=== PATIENT | male | born 1950 | race Caucasian/White ===

== ENCOUNTER 2018-09-21 18:45 | Observation (INO) ==
[2018-09-21] MEDS ORDERED: Temazepam 15 MG Capsule PO PRN (20:23)
[2018-09-21] MEDS ORDERED: Morphine Inj 4 MG/ML Vial IV.PUSH PRN (20:23)
[2018-09-21] MEDS ORDERED: Famotidine 20 MG Tablet PO SCH (21:00)
[2018-09-22] MEDS ORDERED: Heparin Drip 25,000 UNIT/250 ML BAG IV.CONT PRN (03:27)
[2018-09-22] MEDS ORDERED: oxyCODONE HCL 40 MG Controlled Release Tablet PO SCH ×2 (04:15→09:00)
[2018-09-22 04:26] LABS: Baso # (Auto) 0.1 th/mm3 (0.0-0.2); Baso % (Auto) 0.8 % (0.0-2.0); Eos # (Auto) 0.3 th/mm3 (0.0-0.4); Eos % (Auto) 3.3 % (0.0-4.0); Hematocrit 44.4 % (39.0-51.0); Hemoglobin 14.7 gm/dL (13.0-17.0); Lymph # (Auto) 5.8 th/mm3 (1.0-4.8); Mean Corpuscular HGB Conc 33.1 % (32.0-36.0); Mean Corpuscular Hemoglobin 30.4 pg (27.0-34.0); Mean Corpuscular Volume 91.9 fL (80.0-100.0); Mean Platelet Volume 9.4 fL (7.0-11.0); Mono # (Auto) 0.5 th/mm3 (0.0-0.9); Mono % (Auto) 5.4 % (0.0-8.0); Neut # (Auto) 3.1 th/mm3 (1.8-7.7); Neut % (Auto) 31.5 % (16.0-70.0); Platelet Count 172 th/mm3 (150-450); Red Blood Count 4.83 mil/mm3 (4.50-5.90); Red Cell Distribution Width 14.4 % (11.6-17.2); White Blood Count 9.8 th/mm3 (4.0-11.0)
[2018-09-22] MEDS ORDERED: hydrALAZINE HCl Inj 20 MG/ML Vial IV.PUSH PRN (04:36)
[2018-09-22 04:40] LABS: Activated Partial Thrombo Time 64.7 sec (23.4-31.7); INR 1.2 Ratio; Prothrombin Time 11.8 sec (9.8-11.6)
--- NOTE | 2018-09-22 04:57 | P.HPIM ---
History of Present Illness Service: [facility] Hospitalists . Primary Care Physician: Dr. Haile (sp?) Chief Complaint: Chest pain History of Present Illness: Mr. Valencia is a 67 y/o male with a history of AAA s/p AAA repair, hypertension, chronic pain syndrome/RSD, and anxiety who presented to the ER in [place] complaining of chest pain. His second troponin I elio to 1.36 and he was transferred to the [facility] hospital for evaluation of NSTEMI under the hospitalist service. The patient is seen on the [facility]. He reports that he had an episode of nonexertional chest discomfort that felt like a "pulled muscle" in the center of his chest that resolved after about 5 minutes this afternoon. A little while later, he had an episode of severe chest pressure accompanied by diaphoresis, shortness of breath, and radiating to his bilateral mandible area that didn't resolve until after he had received nitroglycerin in the ER in [place]. His BP was also severely elevated in [place] at 212/102 and improved with Clonidine administered there but he experienced bradycardia following dose. . Inpatient Certification: I certify that the inpatient services were ordered in accordance with Medicare regulations governing the order. This includes certification that hospital inpatient services are reasonable and necessary and in the case of services not specified as inpatient-only under 42 CFR 419.22(n), that they are appropriately provided as inpatient services in accordance to with the 2-midnight benchmark under 43 CFR 412.3(e) Estimated Total Length of Stay (Days): 3 Plans for Post Hospital Care: Home Review of Systems All other systems reviewed negative except as stated in HPI [facility] - History History Provided By: Patient - Medical History Medical History: Medical History (Last Updated 09/22/18 @ 05:00 by SUNNY Ford) Abdominal aortic aneurysm Degenerative disc disease Hypertension RSD (reflex sympathetic dystrophy) Spinal stenosis - Surgical History Surgical History: Surgical History (Last Updated 09/22/18 @ 05:00 by SUNNY Ford) H/O knee surgery H/O removal of cyst History of tonsillectomy S/P AAA repair - Family History Family History: Family History (Last Updated 09/22/18 @ 04:59 by SUNNY Ford) Father CAD (coronary artery disease) Mother CAD (coronary artery disease) - Social History I have reviewed the patient's Social History: Yes - Tobacco History Second Hand Smoke Exposure: Yes Tobacco Use In Past 30 Days: Yes Smoking Status: Current every day smoker Tobacco Type: Cigarettes Packs Per Day: 6 Years Smoked: 15 - Alcohol History How Often Do You Have a Drink Containing Alcohol: Never - Substance Use History Substance History: No History of Abuse - Immunization History Tetanus Immunization: <5 Years Hx Influenza Vaccine This Season: No Medications and Allergies Active Medications: Active Medications Acetaminophen (Tylenol) 500 mg PO Q4H PRN PRN Reason: HEADACHE Aspirin (Aspirin Chew) 81 mg PO DAILY GRISELDA Enalaprilat (Vasotec Inj) 2.5 mg IV.PUSH Q6H PRN PRN Reason: SBP>160 or DBP>100 Last Admin: 09/22/18 03:48 Dose: 2.5 mg Famotidine (Pepcid) 20 mg PO BID GRISELDA Gabapentin (Neurontin) 800 mg PO BID GRISELDA Hydralazine HCl (Apresoline Inj) 10 mg IV.PUSH Q4H PRN PRN Reason: SBP>160 or DBP>100 Heparin Sodium/Dextrose (Heparin/D5w 25,000 U/250 Ml) 25,000 unit in 250 mls @ 8 mls/hr IV.CONT TITRATE PRN; Protocol PRN Reason: Per Protocol Metoprolol Tartrate (Lopressor) 50 mg PO BID@0600,1800 GRISELDA Morphine Sulfate (Morphine Inj) 2 mg IV.PUSH Q4H PRN PRN Reason: BREAKTHROUGH PAIN Last Admin: 09/22/18 03:48 Dose: 2 mg Nitroglycerin (Nitrostat Sl) 0.4 mg SL Q5M PRN PRN Reason: ANGINA Oxycodone HCl (Roxicodone) 30 mg PO Q4HR GRISELDA Oxycodone HCl (Oxycontin Cr) 40 mg PO Q12H GRISELDA Sodium Chloride (Ns Flush) 2 ml IV.FLUSH BID GRISELDA Sodium Chloride (Ns Flush) 2 ml IV.FLUSH PRN PRN PRN Reason: FLUSH AFTER USING IV ACCESS Temazepam (Restoril) 15 mg PO HS PRN PRN Reason: INSOMNIA Allergies Allergy/AdvReac Type Severity Reaction Status Date / Time No Known Allergies Allergy Verified 09/21/18 19:07 Home Medications Medication Instructions Recorded Confirmed Type aspirin 81 mg PO DAILY 09/21/18 09/22/18 History metoprolol tartrate 50 mg PO BID 09/21/18 09/22/18 History alprazolam [Xanax] 1 mg PO BID PRN 09/22/18 09/22/18 History gabapentin 800 mg PO BID 09/22/18 09/22/18 History oxycodone 30 mg PO Q4-6H PRN 09/22/18 09/22/18 History oxycodone [OxyContin] 40 mg PO Q12H 09/22/18 09/22/18 History Exam Vital signs: Vital Signs 09/22/18 03:50 09/22/18 04:00 Temperature 97.4 F L Pulse Rate 48 L Respiratory Rate 18 18 Blood Pressure 179/106 H Pulse Oximetry 97 Intake & Output 09/21/18 09/21/18 09/22/18 06:59 18:59 06:59 Weight 67.5 kg Other: Date of Last Bowel Movement 09/21/18 Weight On Admission 67.5 kg Narrative: GENERAL: This is a well-nourished, well-developed patient, in no apparent distress. SKIN: No rashes, ecchymoses or lesions. Cool and dry. HEAD: Atraumatic. Normocephalic. EYES: No scleral icterus. No injection or drainage. ENT: Nose without bleeding, purulent drainage. NECK: Trachea midline. No JVD. CARDIOVASCULAR: Regular rate and rhythm without murmurs, gallops, or rubs. RESPIRATORY: Breath sounds diminished air exchange throughout but equal bilaterally. No wheezes, rales, or rhonchi. GASTROINTESTINAL: Abdomen soft, non-tender, nondistended. No guarding. MUSCULOSKELETAL: Extremities without clubbing, cyanosis, or edema. No calf tenderness. NEUROLOGICAL: Awake and alert. Motor and sensory grossly within normal limits. Normal speech. . Results - Labs CBC & Chem 7: 09/22/18 04:13 09/22/18 04:13 Labs: Short CBC 09/22/18 Range/Units 04:13 WBC 9.8 (4.0-11.0) th/mm3 Hgb 14.7 (13.0-17.0) gm/dL Hct 44.4 (39.0-51.0) % Plt Count 172 (150-450) th/mm3 Caprini VTE Risk Assessment Caprini VTE Risk Assessment: Moderate/High Risk (score >= 2) Caprini Risk Assessment Model: Point Value = 1 Point Value = 2 Point Value = 3 Point Value = 5 Age 41-60 Minor surgery BMI > 25 kg/m2 Swollen legs Varicose veins or History of unexplained or recurrent spontaneous Oral contraceptives or hormone replacement Sepsis (< 1 month) Serious lung disease, including pneumonia (< 1 month) Abnormal pulmonary function Acute myocardial infarction Congestive heart failure (< 1 month) History of inflammatory bowel disease Medical patient at bed rest Age 61-74 Arthroscopic surgery Major open surgery (> 45 min) Laparoscopic surgery (> 45 min) Malignancy Confined to bed (> 72 hours) Immobilizing plaster cast Central venous access Age >= 75 History of VTE Family history of VTE Factor V Leiden Prothrombin [id number] Lupus anticoagulant Anticardiolipin antibodies Elevated serum homocysteine Heparin-induced thrombocytopenia Other congenital or acquired thrombophilia Stroke (< 1 month) Elective arthroplasty Hip, pelvis, or leg fracture Acute spinal cord injury (< 1 month) Prophylaxis Regimen: Total Risk Factor Score Risk Level Prophylaxis Regimen 0-1 Low Early ambulation 2 Moderate Order ONE of the following: *Sequential Compression Device (SCD) *Heparin 5000 units SQ BID 3-4 Higher Order ONE of the following medications: *Heparin 5000 units SQ TID *Enoxaparin/Lovenox 40 mg SQ daily (WT < 150 kg, CrCl > 30 mL/min) *Enoxaparin/Lovenox 30 mg SQ daily (WT < 150 kg, CrCl > 10-29 mL/min) *Enoxaparin/Lovenox 30 mg SQ BID (WT < 150 kg, CrCl > 30 mL/min) AND/OR *Sequential Compression Device (SCD) 5 or more Highest Order ONE of the following medications: *Heparin 5000 units SQ TID (Preferred with Epidurals) *Enoxaparin/Lovenox 40 mg SQ daily (WT < 150 kg, CrCl > 30 mL/min) *Enoxaparin/Lovenox 30 mg SQ daily (WT < 150 kg, CrCl > 10-29 mL/min) *Enoxaparin/Lovenox 30 mg SQ BID (WT < 150 kg, CrCl > 30 mL/min) AND *Sequential Compression Device (SCD) Assessment and Plan - Plan Mr. Valencia is a 67 y/o male with a history of AAA s/p AAA repair, hypertension, chronic pain syndrome/RSD, and anxiety who presented to the ER in [place] complaining of chest pain. His second troponin I elio to 1.36 and he was transferred to the main hospital for evaluation of NSTEMI under the hospitalist service. NSTEMI -Initial troponin was negative but second troponin was 1.36 and third troponin was 4.75 -Heparin drip initiated -Nothing by mouth except medications -Consult cardiology -assistance appreciated -Nitroglycerin as needed for chest pain -IV morphine as needed for breakthrough pain -Continuous cardiac telemetry to monitor for arrhythmia Hypertensive urgency -BP was also severely elevated in [place] at 212/102 -Blood pressure was effectively managed with clonidine in the [place] ER but this caused bradycardia -recommend avoiding clonidine -Blood pressure not improved with as needed Vasotec -Hydralazine 10 mg IV every 4 hours as needed elevated blood pressure -Monitor trends in blood pressure readings and adjust treatment as indicated -Resume home metoprolol -Baby aspirin daily Tobacco abuse -Patient was instructed that he needs to quit smoking Chronic pain -Pain medication verified on [place] prescription drug monitoring website E forcse -continue home oxycodone SR 40 mg every 12 hours and oxycodone 30 milligrams p.o. every 6 hours as needed Anxiety -Unable to verify prescription for Xanax as listed on reconciled home medications -no prescription has been filled for this medication since the beginning of 2016 -I instructed the patient to ask his to bring in a prescription bottle for us to verify before we would restart home Xanax -PRN Restoril ordered for insomnia DVT prophylaxis -Heparin drip Discussed Condition With: Patient, Dr. Aquino, and RN . H&P: Quality - VTE Deep Vein Thrombosis/Pulmonary Embolism Present on Admission: No
[2018-09-22 05:08] LABS: Calcium 8.6 mg/dL (8.5-10.1); Carbon Dioxide 33.3 meq/L (21.0-32.0); Potassium 3.5 meq/L (3.5-5.1)
[2018-09-22] MEDS ORDERED: Heparin - SQ 10,000 UNITS/ML Vial SQ SCH (06:00)
[2018-09-22] MEDS ORDERED: Metoprolol Tartrate 50 MG Tablet PO SCH (06:00)
[2018-09-22] MEDS: Acetaminophen 500 MG Tablet PO PRN ×2 (06:35→11:32)
[2018-09-22 07:12] LABS: Eosinophils 6 % (0-4); Lymphocytes 57 % (9-44); Monocytes 6 % (0-8); Myelocytes 1 % (0-0); Platelet Estimate Normal (Normal); Platelet Morphology Normal (Normal); RBC Morphology Normal (Normal)
[2018-09-22] MEDS ORDERED: Sod Chloride 0.9% Inj 1,000 ML IV.CONT SCH ×2 (07:45→09:00)
[2018-09-22 08:10] LABS: Chol/HDL Ratio 2.23 Ratio; HDL Cholesterol 58.7 mg/dL (40.0-60.0)
[2018-09-22] MEDS ORDERED: Lidocaine PF 1% Inj 30 ML Vial ONE (08:10)
[2018-09-22] MEDS ORDERED: Heparin/NS PF Inj 1,000 ML ONE (08:50)
--- NOTE | 2018-09-22 08:52 | CATHPROC ---
[employer] HIS Report Study Information Study Number Admission Scheduled Start Study Start [id number] Sep 22 2018 3:08AM 09/22/2018 Sep 22 2018 7:59AM [place] [facility] Cardiac Catheterization Admit Source Facility Department Other [facility] - Sheet Metal Worker Supervisor Physician and Clinical Staff Initial MD Masterson, David Casing Inspector Wallace Martin,RN Other cathlab, cathlab Recorder Ilene Gilliland,CELL EFFICIENCY SUPERVISOR TECH2 Scrub Selena Chandra,RT(R) Procedures Performed Procedure Location (Site) Vessel Name Angiogram LV LV Ventricle Coronary Angiograms LCA Left Coronary Coronary Angiograms RCA Right Coronary L Heart Cath Equipment Time Mathematical Scientist Description Size Mfg Part Number Used/Scraped TRANSDUCER, TRUWAVE [id number] 08:02 HERNANDEZ HOLMAN * Used W/STOCKCOCK *[id number] INTRODUCER SET, 08:47 [employer] FR 5 [id number] *[id number] Used MICROPUNCTURE STIFF [id number] *[id number] *[id number] PIGTAIL ANG. 145 INFINITI [id number] CATHETER *[id number] 08:39 DAIG/ST. [employer] MEDICAL ANGIOSEAL, FR6 VIP FR 6 Used *[id number] 08:02 [employer] BLANKET,WARM AIR CCL * Used *[id number] 08:02 [employer] PACK, CCL CUSTOM * Used *[id number] 08:02 [employer] PACER PEN, SKIN DUAL W/ RULER * Used *[id number] 08:02 [employer] SHEATH, FR6.5 PRELUDE 11CM FR 6.5 038ACT Used *[id number] 08:02 [employer] WIRE, 3MMJ .035 180CM 180CM Used *[id number] 08:02 [employer]IC MANIFOLD, 4 PORT * Used *[id number] 08:02 [employer] OMNIPAQUE, 350 MG, 150ML 150ML [id number] Used 08:29 [employer] OMNIPAQUE, 350 MG, 50ML 50ML [id number] Used Equipment Model, Serial, Lot Number and Expiration Data Description Model Number Serial Number Lot Number Expiration Date ANGIOSEAL, FR6 VIP [id number] 05-07-2019 History: Current Medications Medication Dosage/Unit Route Frequency Last Date/Time Taken Neurontin ASA VASOTEC LOPRESSOR NTG SL History: Allergies Allergy Reaction No Known Allergies History: Risk Factors Family History of Hypertension Dyslipidemia Previous OK Previous Heart Failure Premature CAD Yes Yes Yes Yes No Prior Valve Prior PCI Prior CABG Surgery No No No Cerebrovascular Peripheral Artery Chronic Lung On Dialysis Diabetes Disease Disease Disease No No No Yes No History: Risk Factors Selection Items Current Smoker History: Symptoms/Diagnosis Selection Items Chest pain History: CV Disease Selection Items Known CAD OK History: Stress Tests Stress or Imaging Studies Performed No History: Other Disease Selection Items CAD COPD HTN History: Other Current Smoker Method Years Used Yes Cigarettes 15 Comment 1/2 PACK PER DAY Labs Hgb (g/dl) Hct (%) WBC (l/cumm) Platelets (thousands) 11.60-17.00 35.00-51.00 4.00-11.00 150.00-450.00 14.7 44.4 9.8 172 Glucose (mg/dl) BUN (mg/dl) Creatinine (mg/dl) BUN:Creatinine (1:x) 74.00-106.00 7.00-18.00 0.50-1.30 10.00-20.00 80 14 0.9 15.6 Na (meq/l) K (meq/l) 136.00-145.00 3.50-5.10 140 3.5 INR (PTT:PT) 0.90-1.10 1.2 Troponin I (ng/ml) 0.02-0.05 1.3 Medication Medication Total Dose (Bolus/Oral) Medication Total Dosage/Unit 1% XYLOCAINE 20 mL VERSED 2 mg Medications (Bolus/Oral) Medication Time Given Dosage/Unit Administered By Reason VERSED 09/22/2018 8:22:46 AM 1 mg Mario, Wallace 1 mg VERSED given in lab by Wallace Martin RN in Right Forearm via Peripheral IV. Ordered by Makayla Masterson. 1% XYLOCAINE 09/22/2018 8:23:41 AM 20 mL Mario, Wallace 20 mL 1% XYLOCAINE given in lab by Wallace Martin RN in Right Groin via Subcutaneous. Ordered by David Christine. VERSED 09/22/2018 8:23:46 AM 1 mg Mario, Wallace 1 mg VERSED given in lab by Wallace Martin RN in Right Forearm via Peripheral IV. Ordered by Makayla Masterson. Medication (Drip) Medication Time Given Dosage/Unit Concentration/Unit Diluent (ml) Solution IV Solutions 09/22/2018 8:00:49 AM 0 mL (IV) 500 NaCl .9 IV Solutions given in lab by Wallace Martin RN in Right Forearm via Peripheral IV. Pump/Drip Flow = 20 ml/hr using NaCl .9. Ordered by David Masterson. Initial Case Assessment Cardiovascular HR NIBP 77 143/92 Edema Present Skin color Skin None Normal Warm Dry Circulatory - Right Pulses Dorsalis Pedis Femoral 3 3 Scale (0,1,2,3,4,d) Circulatory - Left Pulses Dorsalis Pedis Femoral 3 3 Scale (0,1,2,3,4,d) Neurological State Oriented to time-place- Alert Moves all extremities person Respiration - General Respiration Rate SpO2 (%) (B/min) 13 100 Final Case Assessment Cardiovascular HR NIBP 57 147/87 Edema Present Skin color Skin None Normal Warm Dry Circulatory - Right Pulses Dorsalis Pedis Femoral 3 3 Scale (0,1,2,3,4,d) Circulatory - Left Pulses Dorsalis Pedis Femoral 3 3 Scale (0,1,2,3,4,d) Neurological State Oriented to time-place- Alert Moves all extremities person Respiration - General Respiration Rate SpO2 (%) (B/min) 11 99 Chronological Log Time Study Chronological Log 7:59:58 Patient arrived via Bed. 8:00:04 Patient Name, D.O.B, / Armband Verified By R.N. 8:00:05 Consent signed by the physician and the patient and verified by the Sheet Metal Worker Supervisor staff. 8:00:05 Pre-op and post- op instructions given; patient acknowledges understanding of instructions. 8:00:06 Verbal Stimulation=2 Physical Stimulation=2 Airway=2 Respiration=2 TOTAL=8. (0=absent, 1=li mited, 2=present) Vitals capture started with the following parameters, Patient=Adult, Interval=5 min, Initial Pr upuxpg=522 mmHg, 8:00:33 Deflation Rate=5 mmHg, Cuff placed on Left Arm 8:00:39 Presedation assessment performed by Sheet Metal Worker Supervisor RN. 8:00:41 Patient has been NPO for More than 6Hrs. 8:00:42 NO Skin Breakdown- 8:00:44 Brice Prominences Protected 8:00:47 A # 20 IV was noted in the Forearm (right). Grade = 0 IV Solutions given in lab by Wallace Martin, RN in Right Forearm via Peripheral IV. Pump/Drip Edgar w = 20 ml/hr using NaCl 8:00:49 .9. Ordered by David Masterson. 8:00:57 A # 20 IV was noted in the Forearm (right). Grade = 0 8:01:36 HR=77 bpm, PSPN=075/92 mmhg, CiS2=962.0 %, Resp=13 B/min, Pain=0, Britton=10, Gonsales=2 8:04:03 History and physical on the chart or being dictated. Assessment: Initial Case, HR=77 BPM, UDXC=139/92 mmhg, Edema=None, Color=Normal, Skin = Warm, Dr y Right Pulses: Joseph Ped=3, Femoral=3 8:04:04 Left Pulses: Joseph Ped=3, Femoral=3 Neurological: State=Alert, Ox3, JACK Respiration: Resp=13 B/min, CuM3=102 % 8:04:05 Bilateral groins prepped with 2% chlorhexidine, and draped after a 3 minute waiting time. 8:04:19 Reference ECG taken 8:06:08 HR=56 bpm, MJBT=510/88 mmhg, ThE8=049.0 %, Resp=10 B/min, Pain=0, Britton=10, Gonsales=2 8:09:32 Pressure channel 1 zeroed. 8:11:11 HR=56 bpm, CBVV=713/83 mmhg, JlX4=292.0 %, Resp=12 B/min, Pain=0, Britton=10, Gonsales=2 8:16:51 HR=53 bpm, WLSF=333/81 mmhg, SpO2=99.0 %, Resp=12 B/min, Pain=0, Britton=10, Gonsales=2 8:21:16 HR=56 bpm, PKRE=352/77 mmhg, SpO2=99.0 %, Resp=12 B/min, Pain=0, Britton=10, Gonsales=2 Time Out. Correct patient, correct procedure, correct physician, labs, allergies, and equipment verified with lab aide 8:22:43 team present. Fire risk assesment completed (see hard stop sheet for coding). Time Out Concu rred by MD and individual staff in procedure. 8:22:46 1 mg VERSED given in lab by Wallace Martin RN in Right Forearm via Peripheral IV. Ordered by Vance. Zelalem 8:23:41 20 mL 1% XYLOCAINE given in lab by Wallace Martin RN in Right Groin via Subcutaneous. Ordered by Vance. Zelalem 8:23:46 1 mg VERSED given in lab by Wallace Martin RN in Right Forearm via Peripheral IV. Ordered by David Masterson. 8:23:55 Case Start 8:26:03 Access site was Right Femoral Artery. A INTRODUCER SET, MICROPUNCTURE STIFF FR 5 was advanced into the Fem Art (right) using the Modif ied Seldinger 8:26:11 technique. 8:26:13 A SHEATH, FR6.5 PRELUDE 11CM FR 6.5 was advanced into the Fem Art (right) using the Modified Seldinger technique. 8:26:17 HR=57 bpm, WWXU=726/81 mmhg, SpO2=98.0 %, Resp=11 B/min, Pain=0, Britton=10, Gonsales=2 A PIGTAIL ANG. 145 INFINITI CATHETER FR 6 was advanced over a wire. OMNIPAQUE, 350 MG, 150ML 150 ML was 8:27:09 used for injections. Recorded Pressure: LV, HR=57, Condition=Condition 1 8:28:08 (Left Ventricle) LV 147/2/8 8:29:10 The LV was injected at 8 cc/sec for a total of 30. OMNIPAQUE, 350 MG, 50ML 50ML used. Recorded Pressure: LV, Ao, HR=61, Condition=Condition 1 8:29:47 (Left Ventricle) LV 161/9/14, (Aorta) Ao 162/83/116 8:30:14 Catheter was removed A JL 4.0 INFINITI CATHETER FR 6 was advanced over a wire. OMNIPAQUE, 350 MG, 150ML 150ML was use d for 8:31:12 injections. 8:31:14 HR=57 bpm, XLCU=553/80 mmhg, SpO2=97.0 %, Resp=13 B/min, Pain=0, Britton=10, Gonsales=2 Recorded Pressure: Ao, HR=56, Condition=Condition 1 8:32:00 (Aorta) Ao 156/75/107 8:32:34 The LCA was injected and visualized at various angles. OMNIPAQUE, 350 MG, 150ML 150ML used. 8:35:14 Catheter was removed A 3DRC INFINITI CATHETER FR 6 was advanced over a wire. OMNIPAQUE, 350 MG, 150ML 150ML was used for 8:36:14 injections. 8:36:15 HR=61 bpm, DOWM=832/80 mmhg, SpO2=98.0 %, Resp=11 B/min, Pain=0, Britton=10, Gonsales=2 8:36:56 The RCA was injected and visualized at various angles. OMNIPAQUE, 350 MG, 150ML 150ML used. 8:38:13 An injection in the Fem Art (right) was made through the SHEATH, FR6.5 PRELUDE 11CM FR 6.5. 8:39:37 ANGIOSEAL, FR6 VIP FR 6 placement in the Fem Art (right) 8:41:16 HR=56 bpm, KBSF=260/82 mmhg, SpO2=99.0 %, Resp=11 B/min, Pain=0, Britton=10, Gonsales=2 8:41:55 Case End (Physician broke scrub) 8:44:06 Catheter(s) removed without difficulty 8:44:46 Sterile dressing applied to site 8:44:47 No case complications noted. 8:44:49 Cine recording checked. 8:45:02 Bedside Report will be given. 8:45:17 A Left Heart Cath was performed. 8:46:11 HR=57 bpm, YKVY=823/87 mmhg, SpO2=99.0 %, Resp=11 B/min, Pain=0, Britton=10, Gonsales=2 8:51:17 Vitals capture stopped. Assessment: Final Case, HR=57 BPM, WYAY=102/87 mmhg, Edema=None, Color=Normal, Skin = Warm, Dr y Right Pulses: Joseph Ped=3, Femoral=3 8:51:21 Left Pulses: Joseph Ped=3, Femoral=3 Neurological: State=Alert, Ox3, JACK Respiration: Resp=11 B/min, SpO2=99 % 8:52:01 Patient moved to stretcher End Study - Contrast Media Used In Study Contrast Total Opened (mL) Total Used (mL) Total Wasted (mL) Omnipaque 60 60 0 End Study - Maximum Contrast Load Max Contrast Load (mL) 375.0 End Study - Radiation Exposure Fluoro Time (minutes) 2.0 End Study - Patient Disposition Complications Transferred To Telemetry Bed
[2018-09-22 08:59] LABS: Troponin I 7.82 ng/mL (0.02-0.05)
[2018-09-22] MEDS ORDERED: Gabapentin 400 MG Capsule PO SCH (09:00)
[2018-09-22] MEDS ORDERED: Aspirin 325 MG Tablet PO SCH (09:00)
[2018-09-22] MEDS ORDERED: Isosorbide Mononitrate 30 MG ER 24HR Tablet (Imdur) PO SCH (09:00)
[2018-09-22] MEDS ORDERED: Influenza (Quadrivalent) Vaccine 0.5 ML Syringe IM ONE (09:00)
[2018-09-22] MEDS ORDERED: Iohexol 350 MG/ML 100 ML Vial (for Cath Lab) IVCONTRAST ONE (09:07)
--- NOTE | 2018-09-22 09:18 | MA ---
cc: David Masterson MD DATE: 09/22/2018 PROCEDURE: Left heart catheterization, left ventriculography, coronary angiography, Angio-Seal right femoral artery. DESCRIPTION OF PROCEDURE: The patient was brought to the cardiac catheterization lab in fasting state. He received 2 mg of Versed for sedation. Using 1% lidocaine for local anesthesia and a micropuncture set, a 6-Faroese sheath was inserted in the right femoral artery. Cardiac catheterization was then performed using a left 4 Gildardo 3DRC and an angled pigtail catheter. Angiography was then obtained of the right femoral artery via the sheath, followed by uncomplicated Angio-Seal closure. There were no complications. FINDINGS: 1. Hemodynamics: Please see catheterization laboratory data flow sheet. Hemodynamics were unremarkable. 2. Left ventriculography: Left ventriculography shows normal left ventricular systolic function, ejection fraction was about 70%. 3. Coronary angiography: Coronary circulation was left dominant. All the major coronary arteries appear normal. There may be 70% stenosis of a small branch coming off the first septal zyglo technician branch. CONCLUSIONS: Suspect non ST elevation myocardial infarction secondary to coronary spasm. RECOMMENDATIONS: Since I feel strongly this was coronary spasm event, beta blockers are relatively contraindicated. I do not think this patient should be discharged on a beta marie. Instead, I am recommending nifedipine 30 mg daily and Imdur 30 mg daily along with aspirin and a statin. Critically important that this patient completely quit smoking and I have counseled him. The patient is stable to be discharged home this afternoon. MD AGUSTIN Thornton/tressa , 08:55 AM , 09:01 AM
[2018-09-22 10:32] VITALS: RESP 20; O2SAT 98
[2018-09-22 10:44] LABS: Troponin I 5.92 ng/mL (0.02-0.05)
--- NOTE | 2018-09-22 10:56 | P.PNIM ---
Subjective Interval history: The patient was seen following catheterization. He denied any shortness of breath or chest pain. He said he will quit smoking cigarettes. He was looking forward to going home this afternoon. He had no acute complaints. Discussed with nursing. Physical Exam Vital signs: Vital Signs 09/22/18 03:50 09/22/18 04:00 09/22/18 05:00 Temperature 97.4 F L Pulse Rate 51 L 49 L Respiratory Rate 18 18 Blood Pressure 179/106 H Pulse Oximetry 97 09/22/18 05:09 09/22/18 05:40 09/22/18 06:00 Temperature Pulse Rate 56 L Respiratory Rate 18 Blood Pressure 165/87 H Pulse Oximetry 09/22/18 07:00 09/22/18 08:00 09/22/18 09:00 Temperature Pulse Rate 60 70 58 L Respiratory Rate 20 Blood Pressure 165/98 H Pulse Oximetry 98 09/22/18 10:00 Temperature Pulse Rate 60 Respiratory Rate Blood Pressure Pulse Oximetry Intake & Output 09/21/18 09/22/18 09/22/18 18:59 06:59 18:59 Intake Total 5 / 5 Balance 5 / 5 Weight 67.5 kg Intake: IV 5 / 5 Heparin/NS PF Inj 1,000 ML @ 0 5 / 5 mls/hr .ROUTE [facility] Rx#: [id number] Other: Date of Last Bowel Movement 09/21/18 Weight On Admission 67.5 kg Narrative: GENERAL: This is a well-nourished, well-developed patient, in no apparent distress. SKIN: No rashes, ecchymoses or lesions. Cool and dry. HEAD: Atraumatic. Normocephalic. EYES: No scleral icterus. No injection or drainage. ENT: Nose without bleeding, purulent drainage. NECK: Trachea midline. No JVD. CARDIOVASCULAR: Regular rate and rhythm without murmurs, gallops, or rubs. RESPIRATORY: Mild wheezing. GASTROINTESTINAL: Abdomen soft, non-tender, nondistended. No guarding. MUSCULOSKELETAL: Extremities without clubbing, cyanosis, or edema. Cath site without swelling or bleeding. NEUROLOGICAL: Awake and alert. Motor and sensory grossly within normal limits. Normal speech. Results - Labs CBC & Chem 7: 09/22/18 04:13 09/22/18 04:13 Laboratory Results - last 24 hr 09/22/18 09/22/18 09/22/18 04:13 04:13 04:13 WBC 9.8 RBC 4.83 Hgb 14.7 Hct 44.4 MCV 91.9 MCH 30.4 MCHC 33.1 RDW 14.4 Plt Count 172 MPV 9.4 Prelim Diff (Auto) Slide review pending Neut % (Auto) 31.5 Lymph % (Auto) 59.0 H [place] % (Auto) 5.4 Eos % (Auto) 3.3 Baso % (Auto) 0.8 Neut # (Auto) 3.1 Lymph # (Auto) 5.8 H [place] # (Auto) 0.5 Eos # (Auto) 0.3 Baso # (Auto) 0.1 WBC Differential Manual diff final Seg Neuts % (Manual) 28 Band Neuts % (Manual) 2 Lymphocytes % (Manual) 57 H Monocytes % (Manual) 6 Eosinophils % (Manual) 6 H Myelocytes % (Man) 1 H Abs Neuts (Manual) 3.0 Differential Comment . Platelet Estimate Normal Platelet Morphology Normal RBC Morphology Normal PT INR APTT Sodium 140 Potassium 3.5 D Chloride 103 Carbon Dioxide 33.3 H Anion Gap 4 L BUN 14 Creatinine 0.98 Estimated GFR 77 L Random Glucose 80 Calcium 8.6 Total Creatine Kinase 153 Troponin I 7.82 H* Triglycerides Cholesterol LDL Cholesterol, Calc HDL Cholesterol Cholesterol/HDL Ratio 09/22/18 09/22/18 09/22/18 04:13 04:13 09:40 WBC RBC Hgb Hct MCV MCH MCHC RDW Plt Count MPV Prelim Diff (Auto) Neut % (Auto) Lymph % (Auto) [place] % (Auto) Eos % (Auto) Baso % (Auto) Neut # (Auto) Lymph # (Auto) [place] # (Auto) Eos # (Auto) Baso # (Auto) WBC Differential Seg Neuts % (Manual) Band Neuts % (Manual) Lymphocytes % (Manual) Monocytes % (Manual) Eosinophils % (Manual) Myelocytes % (Man) Abs Neuts (Manual) Differential Comment Platelet Estimate Platelet Morphology RBC Morphology PT 11.8 H INR 1.2 APTT 64.7 H D Sodium Potassium Chloride Carbon Dioxide Anion Gap BUN Creatinine Estimated GFR Random Glucose Calcium Total Creatine Kinase 129 Troponin I 5.92 H* Triglycerides 71 Cholesterol 131 LDL Cholesterol, Calc 58 HDL Cholesterol 58.7 Cholesterol/HDL Ratio 2.23 09/22/18 09:40 WBC RBC Hgb Hct MCV MCH MCHC RDW Plt Count MPV Prelim Diff (Auto) Neut % (Auto) Lymph % (Auto) [place] % (Auto) Eos % (Auto) Baso % (Auto) Neut # (Auto) Lymph # (Auto) [place] # (Auto) Eos # (Auto) Baso # (Auto) WBC Differential Seg Neuts % (Manual) Band Neuts % (Manual) Lymphocytes % (Manual) Monocytes % (Manual) Eosinophils % (Manual) Myelocytes % (Man) Abs Neuts (Manual) Differential Comment Platelet Estimate Platelet Morphology RBC Morphology PT INR APTT 31.0 D Sodium Potassium Chloride Carbon Dioxide Anion Gap BUN Creatinine Estimated GFR Random Glucose Calcium Total Creatine Kinase Troponin I Triglycerides Cholesterol LDL Cholesterol, Calc HDL Cholesterol Cholesterol/HDL Ratio Assessment and Plan - Plan Mr. Valencia is a 67 y/o male with a history of AAA s/p AAA repair, hypertension, chronic pain syndrome/RSD, and anxiety who presented to the ER in [place] complaining of chest pain. His second troponin I elio to 1.36 and he was transferred to the [facility] for evaluation of NSTEMI under the hospitalist service. NSTEMI -Troponin 7.82. -Heparin drip initiated. -Nothing by mouth except medications -Consult cardiology -assistance appreciated. S/p cath without obstructive coronary disease. Thought to be s/t coronary vasospasm. D/c Lopressor, add Imdur and nifedipine. Cleared for discharge this afternoon by cardiology. -statin, asa, ACEi. -Continuous cardiac telemetry -follow up with cardiology asan outpt. Hypertensive urgency -BP was also severely elevated in [place] at 212/102 -Blood pressure was effectively managed with clonidine in the [place] [facility] but this caused bradycardia -recommend avoiding clonidine -Hydralazine 10 mg IV every 4 hours as needed elevated blood pressure -Monitor trends in blood pressure readings and adjust treatment as indicated. Improved. -d/c metoprolol and start nifedipine. Add lisinopril 10 mg daily. Tobacco abuse -Patient was instructed that he needs to quit smoking Chronic pain -Pain medication verified on [place] prescription drug monitoring website E forcse -continue home oxycodone SR 40 mg every 12 hours and oxycodone 30 milligrams p.o. every 6 hours as needed Anxiety -resume home regimen. DVT prophylaxis -Heparin drip Discharge Planning: D/c home this afternoon
[2018-09-22] MEDS ORDERED: Lisinopril 10 MG Tablet PO SCH (11:00)
[2018-09-22 13:17] VITALS: BP 121/74; TEMP 98.6
[2018-09-22 16:03] VITALS: PULSE 56
--- NOTE | 2018-09-22 21:16 | ECG ---
Date Performed: 09/22/2018 Time Performed: 05:41:24 PTAGE: 67 years EKG: Sinus bradycardia Prolonged QT interval Possible septal infarct - age undetermined Compared to previous tracing, QT interval is slightly longer Abnormal ECG NO PREVIOUS TRACING DOCTOR: Gian Toscano Interpretating Date/Time 09/22/2018 21:14:42
--- NOTE | 2018-09-22 21:16 | ECG ---
Date Performed: 09/21/2018 Time Performed: 23:04:23 PTAGE: 67 years EKG: SINUS BRADYCARDIA Compared to previous tracing, sinus rate is slower BORDERLINE ECG NO PREVIOUS TRACING DOCTOR: Gian Toscano Interpretating Date/Time 09/22/2018 21:14:13
== END 2018-09-22 15:49 | disposition home or self-care (01) ==
LOC: NEDDLT 09-22 02:58 → HCIS 09-22 02:58 → OBSVTOIN 09-22 03:08 → INTOOBSV 09-22 03:08
PROVIDERS: ADMIT Hospitalist; ATTEND Hospitalist